=== PATIENT | female | born 2000 | race Caucasian/White ===

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

== ENCOUNTER → 2022-02-28 | Outpatient (CLI) | payer BC, OTHER ==
[~2022-02-28] MED LIST changes: -RABIES VACCINE HUMAN DIPL CELL 1 ML/2.5 UNITS SYR INJ ONE; -RABIES VACCINE HUMAN DIPL CELL 1 ML/2.5 UNITS SYR ONE
--- NOTE | 2022-02-28 11:16 | Diagnostic Imaging Report ---
PROCEDURE: US Gallbladder. INDICATION: Abdominal pain TECHNIQUE: Multiple grayscale sonographic images were obtained of the right upper quadrant of the abdomen. CORRELATION STUDY: None FINDINGS: LIVER: There is uniform echotexture within the visualized portions of the liver. The main portal vein is reported as patent and with normal direction of flow, however not documented. Liver length 12.6 cm. GALLBLADDER: Negative for gallstones. Borderline gallbladder wall thickening 0.3 cm. COMMON BILE DUCT: Nondilated at 0.4 cm. AORTA/IVC: Not well visualized. PANCREAS: Visualized portions appearing unremarkable. RIGHT KIDNEY: 10.1 x 4.8 x 4.8 cm. No hydronephrosis. OTHER: None. IMPRESSION: 1. Negative appearing right upper quadrant abdominal ultrasound. Dictated by: Dictated on workstation # [id number]
== END ==
LOC: RAD 10:00
PROVIDERS: ATTEND Nurse Practitioner Family
DX: R10.9 Unspecified abdominal pain (principal)
CPT/HCPCS: 76705

== ENCOUNTER 2022-03-25 21:08 | Emergency (ER) | payer OTHER ==
[2022-03-25 21:26] VITALS: BP 106/69
[2022-03-25] MEDS ORDERED: AUGMENTIN 875 MG TAB (AMOXICILLIN/CLAVULANATE) PO STA (21:40)
--- NOTE | 2022-03-25 21:40 | ED Lower Extremity ---
General Chief Complaint: Bite-Animal/Human/Insect Stated Complaint: DOG BITE LEFT BIG TOE Nursing Triage Note: pt reports dog bite to right great toe. dog is family pet, unknown vaccine status. bleeding controlled at this time Source: patient Exam Limitations: no limitations History of Present Illness Date Seen by Provider: Mar 25, 2022 Time Seen by Provider: 21:38 Initial Comments Patient is a 22-year-old female presents ED laceration to the top portion of her left big toe. Patient states around 740 this evening her dog accidentally bit her causing a laceration on the dorsum side of the left big toe as well as puncture wounds to the plantar side. She has a puncture wound to the left li ttle finger. Normal active range of motion of the toes. Bleeding controlled direct pressure. Up-to-date on her tetanus within the past 2 years. She states her dogs not up-to-date on her rabies but stays at home and not concern for rabies and refusing vaccine at this time. Denies any distal numbness and tingling of her left big toe, fever, chills, increased redness or swelling or obvious deformity Allergies and Home Medications Allergies Coded Allergies: No Known Drug Allergies (Unverified , 11/30/10) Patient Home Medication List Home Medication List Reviewed: Yes Amoxicillin/Potassium Clav (Amox Tr-K Clv 875-125 mg Tab) 875 Mg-125 Mg Tablet, 1 EACH PO BID Prescribed by: SEDA TRAMMELL on 03/25/22 4689 Review of Systems Constitutional: No chills, No diaphoresis, No malaise, No weakness EENTM: No ear pain, No blurred vision, No double vision, No vision loss Respiratory: No cough Cardiovascular: No chest pain, No edema Gastrointestinal: No abdominal pain, No diarrhea, No nausea Genitourinary: No decreased output, No discharge Musculoskeletal: No back pain; joint pain, muscle pain Skin: change in color, other (laceration) All Other Systems Reviewed Negative Unless Noted: Yes Past Zfijizd-Qeecgm-Trengm Hx Patient Social History Tobacco Use?: No Substance use?: No Alcohol Use?: No Immunizations Up To Date Tetanus Booster (TDap): Less than 5yrs PED Vaccines UTD: Yes Influenza Vaccine Up-to-Date: Yes; Up-to-Date First/Initial COVID19 Vaccinat: unknown date Second COVID19 Vaccination Kirill: unknown date COVID19 Vaccine Manager Discovery: Izzui Past Medical History Surgeries: No Respiratory: No Cardiac: No Neurological: No Sexually Transmitted Disease: No Gastrointestinal: No Musculoskeletal: Yes Arthritis Endocrine: No Cancer: No Psychosocial: No Integumentary: No Blood Disorders: No Physical Exam Vital Signs Vital Signs - First Documented 03/25/22 21:26 Pulse 88 Resp 18 B/P (MAP) 106/69 (81) Pulse Ox 98 O2 Delivery Room Air Capillary Refill : Height, Weight, BMI Height: '" Weight: 115lbs. oz. 52.382059lh; 21.00 BMI Method:Stated General Appearance: WD/WN, no apparent distress HEENT: PERRL/EOMI, normal ENT inspection, TMs normal, pharynx normal Neck: non-tender, full range of motion, supple, normal inspection Cardiovascular: regular rate, rhythm, no edema, no gallop, no JVD Respiratory: chest non-tender, lungs clear, normal breath sounds, no respiratory distress, no accessory muscle use Gastrointestinal: normal bowel sounds, non tender, soft, no organomegaly Feet: left foot pain (Tenderness to palpate left dorsum big toe proximal), left foot soft tissue tenderness, left foot swelling Skin: other (2 cm laceration on the dorsum side of the left big toe with adipose involvement. Puncture wounds noted on the plantar side. Abrasion to the left little finger) Procedures/Interventions Wound Location: Lower Extremities Other Wound Location left big toe Wound Length (cm): 2 Wound's Depth, Shape: superficial, sub Q Wound Explored: clean Irrigated w/ Saline (ccs): 300 Betadine Prep?: Yes Anesthesia: 1% Lidocaine Volume Anesthetic (ccs): 4 Suture: Ethlion Suture Size: 4-0 Number of Sutures: 3 Layer Closure?: 1 Sterile Dressing Applied?: Yes Progress/Results/Core Measures Results/Orders My Orders Orders - FELICIANO VALVERDE Amoxicillin/Clavulanate Tablet (Augmenti (03/25/22 21:40) Vital Signs/I&O 03/25/22 21:26 Pulse 88 Resp 18 B/P (MAP) 106/69 (81) Pulse Ox 98 O2 Delivery Room Air Blood Pressure Mean: 81 Departure Communication (PCP) Patient with a 2 cm laceration above the left dorsum proximal big toe. No tendon or muscular involvement. Due to the size and the gap of the laceration 3 Ethilon sutures were placed lightly to allow drainage. Patient was given dose of Augmentin. She is up-to-date on her tetanus. Remove sutures in 10 days. Discussed wound care at home. Neosporin topical to the puncture wounds. Patient does not want the rabies vaccine. This is her current dog that bit her. She states her dog does bite at times unintentional. She does not want me to call animal control. She feels safe with her dog. If any worsening symptoms such as redness or swelling to return back to ED for further evaluation. Impression Primary Impression: Dog bite Disposition: HOME, SELF-CARE Condition: Stable Departure-Patient Inst. Decision time for Depature: 22:33 Referrals: DIANA HARDY MD (PCP/Family) Primary Care Physician Patient Instructions: Animal and Human Bites Scripts Amoxicillin/Potassium Clav (Amox Tr-K Clv 875-125 mg Tab) 875 Mg-125 Mg Tablet 1 EACH PO BID for 7 Days, #14 TAB Prov: FELICIANO VALVERDE 03/25/22 FELICIANO VALVERDE Mar 25, 2022 21:40
[2022-03-25] MEDS ORDERED: AMOX1TAB12 PO (22:34)
== END 2022-03-25 22:50 | disposition home or self-care (01) ==
LOC: EDUNIT# 21:08 → ER 21:11
DX: S91.152A Open bite of left great toe without damage to nail, initial encounter (principal); W54.0XXA Bitten by dog, initial encounter